=== PATIENT | male | born 1975 | race Caucasian/White ===

== ENCOUNTER 2023-11-08 22:49 | Emergency (ER) | payer BC, SELFPAY ==
[2023-11-08 22:52] VITALS: BP 142/90; PULSE 92; TEMP 36.9; O2SAT 96; BMI 44.6
--- NOTE | 2023-11-08 23:40 | ED.WOUNDLAC1 ---
HPI - Wound/Laceration General Chief Complaint: Wound/Laceration Stated Complaint: FALL OFF LADDER-UPPER EXTREMITY INJURY Time Seen by Provider: 11/08/23 23:08 Source: patient Mode of arrival: walk-in Limitations: no limitations History of Present Illness HPI narrative: This 48-year-old male who is right-hand dominant presents for evaluation of a superficial laceration to the thenar eminence of the right hand. The patient states he was coming down a ladder and slipped and cut his hand on the ladder. He also admits that he struck his head briefly on the ladder but did not lose consciousness. He is not concerned about striking his head but is concerned about the laceration on his hand. His did clean it up and apply Steri-Strips. He does not know the date of his last tetanus shot. No additional injuries or complaints. Related Data Home Medications ?Medication ?Instructions ?Recorded ?Confirmed lisinopril 5 mg tablet mg 11/08/23 Allergies Allergy/AdvReac Type Severity Reaction Status Date / Time No Known Drug Allergies Allergy Verified 11/08/23 23:04 Review of Systems ROS Status of ROS 10 or more systems reviewed and unremarkable except as noted in history and below Exam Narrative Exam Narrative: Vital signs and Nursing Notes reviewed: She is afebrile with a normal pulse, blood pressure is elevated at 142/90, he is not hypoxic with pulse ox of 96% on room air General: Awake, alert, oriented, no acute distress, lying comfortably on the stretcher HEENT: Normocephalic atraumatic, mucous membranes are moist and pink, eyes are clear, normal conjunctiva, vision is grossly intact Neck: Supple, no midline bony vertebral tenderness or step-off Chest: Lungs are clear to auscultation with good air entry, there is no wheezing rhonchi or rales appreciated no accessory muscle use, patient is speaking in complete sentences-no chest wall tenderness to palpation CVS: Regular rate and rhythm S1-S2, no murmurs rubs or gallops, pulses are brisk and equal bilaterally ABD: Soft, nondistended, nontender, no rebound guarding or rigidity, bowel sounds are normal, no pulsatile masses appreciated Extremities: Moving all extremities, there is approximately 2.5 cm superficial laceration to the right thenar eminence. There is no bony tenderness in this area, no active bleeding noted. Is able to approximate thumb and all fingers. No pain with axial loading. Capillary refill less than 2 seconds. Skin: Normal in appearance without rash,pallor, petechiae or purpura Neuro: No focal deficits Constitutional Vital Signs, click to edit/add: Last Vital Signs Temp 98.4 F 11/08/23 22:52 Pulse 92 H 11/08/23 22:52 Resp 18 11/08/23 22:52 BP 142/90 H 11/08/23 22:52 Pulse Ox 96 11/08/23 22:52 O2 Del Method Room Air 11/08/23 22:52 Course Vital Signs Vital signs: Vital Signs Temperature 98.4 F 11/08/23 22:52 Pulse Rate 92 H 11/08/23 22:52 Respiratory Rate 18 11/08/23 22:52 Blood Pressure 142/90 H 11/08/23 22:52 Pulse Oximetry 96 11/08/23 22:52 Oxygen Delivery Method Room Air 11/08/23 22:52 Temperature 98.4 F 11/08/23 22:52 Pulse Rate 92 H 11/08/23 22:52 Respiratory Rate 18 11/08/23 22:52 Blood Pressure 142/90 H 11/08/23 22:52 Pulse Oximetry 96 11/08/23 22:52 Oxygen Delivery Method Room Air 11/08/23 22:52 MDM - Wound/Laceration MDM Narrative Medical decision making narrative: Procedure note: Laceration repair; the patient's right thenar eminence was infiltrated with 1% lidocaine along the wound edges then cleaned with normal saline and Betadine. There was some small avulsed skin that was trimmed and 6, 3-0 Ethilon sutures were placed into the wound edges with good wound edge approximation. Bacitracin dressing was placed by the nursing staff. Tetanus was updated. Wound instructions were given to the patient and he was discharged home. Discharge Plan Discharge Stand Alone Forms: Portal Instructions Chief Complaint: Wound/Laceration Clinical Impression: Fall from ladder, Laceration of thumb Patient Disposition: Home, Self-Care Time of Disposition Decision: 23:56 Condition: Good Prescriptions / Home Meds: No Action lisinopril 5 mg tablet Print Language: Setswana Instructions: Care For Your Stitches (ED), Laceration (ED) Additional Instructions: Sutures can be removed in 10-12 days. Apply topical bacitracin 1-2 times/day and keep the laceration site covered with a band aid Referrals: Darvin Gill DO [Primary Care Provider] - 1 week
[2023-11-09] MEDS: ADACEL DIPH,PERTUSS(ACELL),TET VAC/PF 0.5 ML ADULT SYRINGE IM (00:03)
[2023-11-09] MEDS: BACITRACIN OINTMENT 28.4 GM TUBE 1 APPLIC TOPICAL (00:05)
[2023-11-09] MEDS: LIDOCAINE HCL 1% 100 MG/10 ML MDV INJ (00:05)
--- NOTE | 2023-11-09 00:09 | PC.NURSE ---
Pt presents to ER after falling down a ladder from approximately 5 foot Pt states he was working in his ladder and the ladder broke at the bottom Pt states he did not fall straight to the ground but kind of slid down the ladder Pt states he knows he will have some pain and soreness throughout his body but the only area he is wanting to have checked out as of now is his thumb Pt has laceration present to palm of his right hand at the base of his thum Pt's spouse applied 5 steri strips, bleeding controlled at this time Palm does appear swollen and bruised but pt states it is not extremely painful and MSP's are intact Dr. Upton placed sutures, bacitracin and large bandaid applied over wound
== END 2023-11-09 00:10 | disposition home or self-care (01) ==
PROVIDERS: Emergency Provider Emergency Medicine; PCP Internal Medicine
DX: S61.411A Laceration without foreign body of right hand, initial encounter (principal); Z23 Encounter for immunization; W11.XXXA Fall on and from ladder, initial encounter
CPT/HCPCS: 12001; 90471; 90715; 99284